=== PATIENT | female | born 1970 | race African-American/Black ===

== ENCOUNTER 2019-04-06 12:03 | Emergency (ER) | payer MEDICARE, MEDICAID ==
[~2019-04-06] VITALS: Ht 167.6 cm; Wt 80.0 kg
[~2019-04-06 12:03] MED LIST: PREN-127 PO
[2019-04-06 12:27] VITALS: BP 169/118
== END 2019-04-06 13:14 | disposition home or self-care (01) ==
LOC: ER 12:03
DX: S63.601A Unspecified sprain of right thumb, initial encounter (principal); X58.XXXA Exposure to other specified factors, initial encounter; Y93.89 Activity, other specified; Y92.89 Other specified places as the place of occurrence of the external cause; Y99.8 Other external cause status
CPT/HCPCS: 99282

== ENCOUNTER 2019-06-23 12:33 | Emergency (ER) | payer MEDICARE, MEDICAID ==
[~2019-06-23] VITALS: Ht 167.6 cm; Wt 75.0 kg
[2019-06-23 16:14] LABS: CLARITY URINE CLOUDY (CLEAR); COLOR URINE YELLOW (YELLOW); KETONES URINE TRACE (NEGATIVE); LEUKOCYTE ESTERASE URINE NEGATIVE (NEGATIVE); NITRITE URINE NEGATIVE (NEGATIVE); OCCULT BLOOD URINE 1+ (NEGATIVE); PROTEIN URINE NEGATIVE (NEGATIVE); SPECIFIC GRAVITY URINE 1.024 (1.005-1.030)
[2019-06-23] MEDS ORDERED: KETOROLAC 60MG/2ML VIAL IM STA (17:29)
[2019-06-23 17:54] VITALS: BP 138/84
== END 2019-06-23 17:55 | disposition home or self-care (01) ==
LOC: ER 14:42
DX: M54.5 Low back pain (principal); N39.0 Urinary tract infection, site not specified; F12.10 Cannabis abuse, uncomplicated; Z98.890 Other specified postprocedural states
CPT/HCPCS: 72100; 81003; 81025; 96372; 99284; J1885

== ENCOUNTER 2019-08-26 08:35 | Emergency (ER) | payer MEDICARE, MEDICAID ==
[~2019-08-26] VITALS: Ht 167.6 cm; Wt 75.0 kg
[2019-08-26] MEDS ORDERED: TETANUS, DIPHTHERIA, PERTUSSIS VAC/PF 0.5ML (>7YR OLD) IM ONE (10:45)
[2019-08-26] MEDS ORDERED: BACITRACIN ZINC OINT UDPKT TOP ONE (10:45)
[2019-08-26] MEDS ORDERED: LIDOCAINE HCL/PF 1% 10 MG/ML 5ML VIAL IJ ONE (10:45)
[2019-08-26] MEDS ORDERED: BACITRACIN 15GM TUBE TOP SCH (11:00)
[2019-08-26 11:51] VITALS: BP 150/90
== END 2019-08-26 11:54 | disposition home or self-care (01) ==
LOC: ER 08:48
DX: S61.210A Laceration without foreign body of right index finger without damage to nail, initial encounter (principal); I10 Essential (primary) hypertension; F12.10 Cannabis abuse, uncomplicated; W22.03XA Walked into furniture, initial encounter; Y93.89 Activity, other specified; Y92.018 Other place in single-family (private) house as the place of occurrence of the external cause
CPT/HCPCS: 12001; 73130; 90471; 90715; 99283; J3490

== ENCOUNTER 2019-09-09 06:46 | Emergency (ER) | payer MEDICARE, MEDICAID ==
[~2019-09-09] VITALS: Ht 167.6 cm; Wt 75.0 kg
[2019-09-09 08:05] VITALS: BP 185/111
== END 2019-09-09 08:47 | disposition home or self-care (01) ==
LOC: ER 06:46
DX: Z48.02 Encounter for removal of sutures (principal)
CPT/HCPCS: 99281